=== PATIENT | male | born 1940 | race Caucasian/White ===

== ENCOUNTER 2019-02-25 22:11 | Emergency (ER) | payer OTHER ==
[~2019-02-25] VITALS: Ht 177.8 cm; Wt 70.8 kg
[2019-02-26] MEDS ORDERED: Flonase 0.05% N16 GM (00:45)
[2019-02-26] MEDS ORDERED: Prinivil10 MG PO (00:46)
[2019-02-26] MEDS ORDERED: ATOR40TA PO (00:46)
[2019-02-26] MEDS ORDERED: GLIP5 PO (00:46)
[2019-02-26] MEDS ORDERED: GABA100 PO (00:47)
[2019-02-26] MEDS ORDERED: ASPI81CH (00:47)
[2019-02-26] MEDS ORDERED: SILDENAFIL20 MG PO (00:47)
[2019-02-26] MEDS ORDERED: Vitamin B-121000 MCG PO (00:48)
[2019-02-26] MEDS ORDERED: CLOP75 PO (00:48)
[2019-02-26] MEDS ORDERED: METO25 PO (00:48)
[2019-02-26] MEDS ORDERED: Augmentin 500-1 EACH PO (00:51)
== END 2019-02-26 01:07 | disposition home or self-care (01) ==
LOC: ER 22:11
DX: S62.630B Displaced fracture of distal phalanx of right index finger, initial encounter for open fracture (principal); S61.310A Laceration without foreign body of right index finger with damage to nail, initial encounter; W23.0XXA Caught, crushed, jammed, or pinched between moving objects, initial encounter
CPT/HCPCS: 12001; 73140; 96365-59; 99283-25; J0690